=== PATIENT | female | born 1955 | race Caucasian/White ===

== ENCOUNTER 2017-06-17 16:52 | Emergency (ER) | payer MEDICARE, OTHER ==
[~2017-06-17] VITALS: Ht 165.1 cm; Wt 102.3 kg
[~2017-06-17 16:52] MED LIST: AMLO1TAB; ATOR40TA21; AZOR; CRES10; ESOM40CA PO; METO-53; VENL150C PO; VENL75TA61
[2017-06-17 17:07] VITALS: Ht 165.1 cm; Wt 102.3 kg
[2017-06-17] MEDS ORDERED: FAMOTIDINE 20 MG INJ IV STA (17:13)
[2017-06-17] MEDS ORDERED: EPINEPHrine 1 MG INJ IM STA (17:13)
[2017-06-17] MEDS ORDERED: METHYLPREDNISOLONE 125 MG INJ IV STA (17:13)
[2017-06-17] MEDS ORDERED: DIPHENHYDRAMINE 50 MG INJ IV STA (17:13)
[2017-06-17] MEDS ORDERED: ALBUTEROL 0.083% (NEB) 2.5 MG/3 ML AMP INH STA (17:13)
[2017-06-17] MEDS ORDERED: EPIN0.3P4 INJ (19:27)
[2017-06-17 19:31] VITALS: BP 129/61; PULSE 73; RESP 16; TEMP 97.8
--- NOTE | 2017-06-17 19:35 | ERD ---
ER Documentation Chief Complaint Date/Time DATE: 06/17/17 TIME: 19:32 Chief Complaint BEE STING ON RIGHT HAND X 1 HOUR AGO, HX OF BEE ALLERGY. FLUSHED, EDEMA,SOB HPI This is a very pleasant 62-year-old female presents to the emergency department after she was stung by bee on her right thumb 1 hour prior to arrival. The patient immediately felt warm and noticed some swelling of her right thumb and redness to her face. She complained of mild difficulty breathing. She states several years ago she was stung by a bee and had an anaphylactic reaction. She denied any swelling of her lips or tongue. She has an epinephrine pen at home but did not administer this as it was . Brought into the emergency department by EMS. The bee stung her while she was in an the garden picking fruit. ROS All systems reviewed and are negative except as per history of present illness. Medications Home Meds Active Scripts Epinephrine (Epipen 2-George) 0.3 Mg/0.3 Ml Pen.injctr, 1 EA INJ ONCE Y for ALLERGIC REACTION, #1 EA Prov:ALAN VICENTE 06/17/17 Reported Medications Rosuvastatin Calcium* (Crestor*) 10 Mg Tablet, DAILY 06/13/12 Metoprolol (Lopressor) 50 Mg Tablet, DAILY 06/13/12 Amlodipine-Olmesartan (Kaci) 1 Tab Tablet, DAILY 06/13/12 Venlafaxine Hcl (Effexor) 75 Mg Tablet, DAILY 06/13/12 Venlafaxine Hcl* (Effexor XR*) 150 Mg Cap.sr.24h, 150 MG PO DAILY 03/13/12 Esomeprazole Mag Trihydrate (Nexium) 40 Mg Capsule.dr, 40 MG PO 03/13/12 Atorvastatin (Lipitor) 40 Mg Tablet 03/13/12 [Kaci] No Conflict Check 06/12/11 Allergies Allergies: Coded Allergies: Sulfa(Sulfonamide Antibiotics) (Verified Allergy, Severe, SOB, SWELLING, ) Uncoded Allergies: SULFA (Allergy, Severe, 08/03/12) ANAPHALAXIS [id number] (SULFA (SULFONAMIDE ANTIBIOTICS)) (Allergy, Mild, 04/04/10) PMhx/Soc History of Surgery: Yes (C SECTION ,HEMORROIDDECTOMY 16 YRS AGO) Anesthesia Reaction: No Hx Neurological Disorder: No Hx Respiratory Disorders: No Hx Psychiatric Problems: Yes (DEPRESSION) Hx Miscellaneous Medical Probl: No Hx Alcohol Use: No Hx Substance Use: No Hx Tobacco Use: Yes Smoking Status: Current some day smoker Physical Exam Vitals Vital Signs Date Time Temp Pulse Resp B/P Pulse Ox O2 Delivery O2 Flow Rate FiO2 06/17/17 19:31 97.8 73 16 129/61 100 Room Air 06/17/17 18:31 78 17 120/57 100 Room Air 06/17/17 17:53 83 18 98 Nasal Cannula 2.0 06/17/17 17:32 Nasal Cannula 2.0 06/17/17 17:07 97.8 73 22 157/117 100 Physical Exam Constitutional:Well-developed. Well-nourished. HEENT:Normocephalic. Atraumatic.Pupils were equal round reactive to light. Moist mucous membranes.No tonsillar exudates. No angioedema. No pooling of secretions within the oropharynx. No macroglossia. Neck: No nuchal rigidity. No lymphadenopathy. No posterior cervical spine tenderness or step-offs. Respiratory: Not using accessory muscles of respiration.Lungs were clear to auscultation bilaterally. No rhonchi. No rales. Wheezing on end auscultation bilateral Cardiovascular: Regular rate regular rhythm.No murmurs. No rubs were appreciated.S1, S2 normal. Distal pulses are palpable 2+ bilaterally. GI: Abdomen was soft. Nontender. Non Distended. No pulsatile abdominal masses or bruits. No rebound. No guarding. Bowel sounds were present and normal. Muscle skeletal: Full range of motion of both the upper and lower extremities bilaterally.Normal muscle tone.No assymetrical calf tenderness or swelling. Skin: No petechia, no purpura. No lesions on the palms or the soles of the feet. No maculopapular rash. Erythema of the right thumb with no soft tissue swelling of the right thumb or thenar eminence. Compartments were soft at the bilateral upper extremities. No Diffuse erythremia. NEURO: Patient was alert, awake, orientated x3.No facial droop. Gait observed and normal with no ataxia.Speech had regular rate and rhythm. No focal neurological deficits. Results 24 hrs Current Medications Medications (Trade) Dose Ordered Sig/John Route PRN Reason Start Time Stop Time Status Last Admin Dose Admin Diphenhydramine HCl (Benadryl) 50 mg ONCE STAT IV 06/17/17 17:13 06/17/17 17:14 DC 06/17/17 17:18 Epinephrine (EPINEPHrine) 0.5 mg ONCE STAT IM 06/17/17 17:13 06/17/17 17:14 DC 06/17/17 17:18 Famotidine (Pepcid Iv) 20 mg ONCE STAT IV 06/17/17 17:13 06/17/17 17:14 DC 06/17/17 17:18 Methylprednisolone Sodium Succinate (Solu-Medrol) 125 mg ONCE STAT IV 06/17/17 17:13 06/17/17 17:14 DC 06/17/17 17:18 Albuterol (Proventil 0.083% (Neb)) 5 mg ONCE STAT INH 06/17/17 17:13 06/17/17 17:14 DC 06/17/17 17:52 Procedures/MDM She presented to the emergency department with a mild allergic reaction no evidence of angioedema at this time. However the patient was immediately placed on a case monitor continuous pulse oximetry and IV access was established by nursing staff and given that the patient has a history of an anaphylactic reaction to a bee sting she was prophylactically treated with epinephrine IV Benadryl Pepcid and a nebulizer treatment of albuterol. Patient had no signs of cardiac ectopy seen on the case monitor. After the above treatment the patient stated her symptoms are completely improved. Her wheezing had resolved. She had no evidence of angioedema or airway compromise sedation and she felt comfortable being discharged home. She was given a prescription of epinephrine pen. The patient was discharged home in fair condition. They were instructed to return to the emergency department at any time if there was any worsening of their condition. The patient stated they would follow up with their PCP in the next 24-48 hours to initiate a suitable medication regimen under the care of their PCP as well as to allow their PCP to monitor any drug reactions. The patient was discharged home with prescriptions after they gave informed consent to the new medication. They were also fully informed by myself on the adverse effects and adverse drug interactions in order to provide adequate safeguards to prevent possible adverse reactions to medications. Departure Diagnosis: Primary Impression: Bee sting reaction Encounter type: initial encounter Injury intent: undetermined intent Qualified Code: T63.444A - Bee sting reaction, undetermined intent, initial encounter Condition: Fair Patient Instructions: Allergic Reaction, Insect (Local) Referrals: DONALD GALINDO (PCP) ALAN VICENTE Jun 17, 2017 19:35
== END 2017-06-17 19:32 | disposition home or self-care (01) ==
LOC: E/R 16:52
DX: T63.444A Toxic effect of venom of bees, undetermined, initial encounter (principal); F17.210 Nicotine dependence, cigarettes, uncomplicated; R40.2142 Coma scale, eyes open, spontaneous, at arrival to emergency department; R40.2252 Coma scale, best verbal response, oriented, at arrival to emergency department; R40.2362 Coma scale, best motor response, obeys commands, at arrival to emergency department
CPT/HCPCS: 94664; J0171; J1200; J2930

== ENCOUNTER → 2017-11-30 | Outpatient (CLI) | END | disposition home or self-care (01) ==

== ENCOUNTER 2018-03-29 19:14 | Emergency (ER) | END 2018-03-29 21:06 | disposition home or self-care (01) ==

== ENCOUNTER 2018-04-14 14:56 | Emergency (ER) | END 2018-04-14 17:39 | disposition home or self-care (01) ==